=== PATIENT | female | born 1985 ===

== ENCOUNTER 2020-01-16 08:36 | Outpatient (REF) | payer OTHER, SELFPAY ==
--- NOTE | 2020-01-16 08:15 | PAPFT_PTH ---
PATIENT: Ginna Mcgee [facility] U#:[id number] AGE/SX: 34/F ROOM: RE01/16/[address]: Dorothea Silva : 1985 BED: DIS: 01/16/2020 SPEC #: [id number] RECD: 01/17/20 12:51 STATUS: SIMI REBernardino #: [id number] MAXWELL: 01/16/20 08:[address]: Dorothea Silva DEPT: [facility] Cytology RECD BY: Elinor Estes Tissues: 1 - CX/ENDOCX FOR PAP SMEARS Procedures: PAP THIN PREP/[facility] Screening HPV DNA PROBE Comments: [id number]
[2020-01-16 21:37] LABS: Anion Gap 7.8 mmol/L (3-11); BUN 12 mg/dL (7-18); CO2 27.2 mmol/L (21.0-32.0); CREATININE 0.64 mg/dL (0.55-1.02); Calcium 8.7 mg/dL (8.5-10.1); Calculated LDL 127 mg/dL (<100); Chloride 105 mmol/L (98-107); Cholesterol 200 mg/dL (<200); Glucose 101 mg/dL (74-106); HDL Cholesterol 66 mg/dL (40-60); Potassium 4.3 mmol/L (3.5-5.1); Sodium 140 mmol/L (136-145); TSH (W/Ref FT4) 1.56 uIU/mL (0.36-3.74); Triglyceride 37 mg/dL (<150)
== END 2020-01-16 08:56 ==
LOC: NCHCN 08:36
PROVIDERS: Visit Provider Nurse Practitioner Family
DX: Z12.4 Encounter for screening for malignant neoplasm of cervix (principal); Z11.51 Encounter for screening for human papillomavirus (HPV); Z13.29 Encounter for screening for other suspected endocrine disorder; Z13.220 Encounter for screening for lipoid disorders; Z00.00 Encounter for general adult medical examination without abnormal findings
CPT/HCPCS: 80048; 80061; 88142; 84443; 87624

== ENCOUNTER 2022-01-28 08:47 | Outpatient (REF) | payer OTHER, SELFPAY ==
[2022-01-28 14:44] LABS: Abs Immature Grans 0.01 10^3/uL (0.0-0.06); Absolute Basophil Count 0.04 10^3/uL (0.0-0.2); Absolute Eosinophil Count 0.25 10^3/uL (0.0-0.7); Absolute Monocyte Count 0.62 10^3/uL (0.1-0.8); Absolute Neutrophil Count 3.13 10^3/uL (1.2-6.7); Basophils % 0.6; HGB 14.3 g/dL (11.2-15.7); Immature Grans % 0.2; Lymphocytes % 35.2; MCH 33.3 pg (27.0-33.0); MCV 98 fL (80-95); MPV 10.5 fL (8.0-11.0); Monocytes % 9.9; Neutrophils % 50.1; Platelet Count 285 10^3/uL (130-400); RDW 12.1 % (11.7-14.6); RDW-SD 43.7 fL; WBC 6.25 10^3/uL (4.4-10.8)
[2022-01-28 15:25] LABS: ALT 38 U/L (14-59); AST 27 U/L (15-37); Alkaline Phosphatase 44 U/L (46-116); Anion Gap 9.4 mmol/L (3-11); BUN 20 mg/dL (7-18); Bilirubin, Total 0.4 mg/dL (0.2-1.0); CO2 25.6 mmol/L (21.0-32.0); CREATININE 0.7 mg/dL (0.55-1.02); Calcium 8.8 mg/dL (8.5-10.1); Chloride 102 mmol/L (98-107); Estimated GFR 115.59 (mL/min/1.73m2); Glucose 60 mg/dL (74-106); Potassium 4.1 mmol/L (3.5-5.1); Sodium 137 mmol/L (136-145); TSH (W/Ref FT4) 1.43 uIU/mL (0.36-3.74); Total Protein 7.6 g/dL (6.4-8.2)
[2022-01-28 16:02] LABS: Hemoglobin A1C 5.5 % (<5.7)
[2022-01-29 09:28] LABS: Calculated LDL 148 mg/dL (<100); Cholesterol 223 mg/dL (<200); HDL Cholesterol 63 mg/dL (40-60); Triglyceride 60 mg/dL (<150)
== END 2022-01-28 08:48 | disposition home or self-care (01) ==
LOC: NCHCN 08:47
PROVIDERS: Visit Provider Nurse Practitioner Family
DX: Z00.00 Encounter for general adult medical examination without abnormal findings (principal); Z13.1 Encounter for screening for diabetes mellitus; Z13.29 Encounter for screening for other suspected endocrine disorder
CPT/HCPCS: 80053; 80061; 83036; 84443; 85025

== ENCOUNTER 2022-09-02 15:22 | Outpatient (REF) | payer BC, SELFPAY ==
[2022-09-02 15:58] LABS: Anion Gap 10.3 mmol/L (3-11); BUN 13 mg/dL (7-18); CO2 26.7 mmol/L (21.0-32.0); CREATININE 0.7 mg/dL (0.55-1.02); Calcium 9.7 mg/dL (8.5-10.1); Chloride 102 mmol/L (98-107); Estimated GFR 114.88 (mL/min/1.73m2); Glucose 94 mg/dL (74-106); Sodium 139 mmol/L (136-145)
== END 2022-09-02 15:23 | disposition home or self-care (01) ==
LOC: NCHCN 15:22
PROVIDERS: Visit Provider Family Medicine
DX: R03.0 Elevated blood-pressure reading, without diagnosis of hypertension (principal)
CPT/HCPCS: 80048

== ENCOUNTER 2024-12-12 16:05 | Outpatient (REF) | payer OTHER, SELFPAY ==
[2024-12-12 15:04] LABS: Hemoglobin A1C 5.3 % (<5.7)
[2024-12-12 15:14] LABS: ALT 47 U/L (14-59); AST 27 U/L (15-37); Albumin 4.4 g/dL (3.4-5.0); Alkaline Phosphatase 65 U/L (46-116); Anion Gap 7.0 mmol/L (3-11); BUN 10 mg/dL (7-18); Bilirubin, Total 0.4 mg/dL (0.2-1.0); CO2 31.0 mmol/L (21.0-32.0); Calcium 9.0 mg/dL (8.5-10.1); Chloride 101 mmol/L (98-107); Estimated GFR 96.66 (mL/min/1.73m2); Glucose 107 mg/dL (74-106); Potassium 4.2 mmol/L (3.5-5.1); Sodium 139 mmol/L (136-145); TSH (W/Ref FT4) 1.38 uIU/mL (0.36-3.74); Total Protein 8.2 g/dL (6.4-8.2)
== END 2024-12-12 16:06 | disposition home or self-care (01) ==
LOC: NCHCN 16:05
PROVIDERS: PCP Family Medicine; Visit Provider Family Medicine
DX: E78.5 Hyperlipidemia, unspecified (principal); E66.9 Obesity, unspecified
CPT/HCPCS: 80053; 83036; 84443

== ENCOUNTER 2025-01-16 16:03 | Outpatient (REF) | payer OTHER, SELFPAY ==
--- NOTE | 2025-01-16 08:30 | PAPFT_PTH ---
PATIENT: Ginna Mcgee LOC: [facility]#:[id number] AGE/SX: 39/F ROOM: RE01/16/[address]: Nicolette Art : 1985 BED: DIS: 01/16/2025 SPEC #: [id number] RECD: 01/16/25 18:07 STATUS: SIMI REBernardino #: [id number] MAXWELL: 01/16/25 08:[address]: Nicolette Art DEPT: [facility] Cytology RECD BY: Elinor Estes Tissues: 1 - CX/ENDOCX FOR PAP SMEARS Procedures: PAP THIN PREP/[facility] Screening HPV DNA PROBE Comments: [id number] (HPV 16 & 18/45)
== END 2025-01-16 16:04 | disposition home or self-care (01) ==
LOC: NCHCN 16:03
PROVIDERS: PCP Family Medicine; Visit Provider Family Medicine
DX: Z12.4 Encounter for screening for malignant neoplasm of cervix (principal)
CPT/HCPCS: 88142; 87624

== ENCOUNTER 2025-04-14 21:17 | Outpatient (REF) | payer OTHER, SELFPAY | END 2025-04-14 21:18 | disposition home or self-care (01) | LOC: NCHCN 21:17 | PROVIDERS: PCP Family Medicine; Visit Provider Family Medicine | DX: R10.84 Generalized abdominal pain (principal) | CPT/HCPCS: 87086 ==